=== PATIENT | female | born 1955 | race African-American/Black ===

== ENCOUNTER 2020-02-03 05:35 | Inpatient (IN) ==
[2020-02-03] MEDS ORDERED: FAMOTIDINE 20 MG TABLET PO ONE (06:20)
[2020-02-03] MEDS ORDERED: DIAZEPAM 5 MG TABLET PO ONE (06:20)
[2020-02-03] MEDS ORDERED: LACTATED RINGERS 1,000 ML IV SCH (06:30)
[2020-02-03] MEDS ORDERED: VANCOMYCIN INJ 1,000 MG in SODIUM CHLORIDE 0.9% 250 ML IV ONE (06:30)
[2020-02-03] MEDS ORDERED: CLINDAMYCIN INJ 900 MG in PREMIX 1 EACH IV ONE (06:30)
[2020-02-03] MEDS ORDERED: VANCOMYCIN 1,000 MG VIAL ONE (06:32)
[2020-02-03] MEDS ORDERED: FAMOTIDINE 20 MG TABLET ONE (06:33)
[2020-02-03] MEDS ORDERED: CLINDAMYCIN INJ 50 ML IV ONE (06:33)
[2020-02-03] MEDS ORDERED: DIAZEPAM 5 MG TABLET ONE (06:33)
[2020-02-03] MEDS ORDERED: BACITRACIN OINT 0.9 GM PACK TOP ONE (08:15)
[2020-02-03] MEDS ORDERED: GLUCAGON 1 MG VIAL IM PRN (09:01)
[2020-02-03] MEDS ORDERED: DEXTROSE 10% 250 ML BAG IV PRN (09:01)
[2020-02-03] MEDS ORDERED: MAGNESIUM HYDROXIDE SUSP 30 ML UDCUP PO PRN (09:02)
[2020-02-03] MEDS ORDERED: diphenhydrAMINE CAP 25 MG CAPSULE PO PRN (09:02)
[2020-02-03] MEDS ORDERED: ONDANSETRON 4 MG/2 ML VIAL IV PRN ×2 (09:02→09:32)
[2020-02-03] MEDS ORDERED: MORPHINE 4 MG/1 ML VIAL IV PRN ×2 (09:02)
[2020-02-03] MEDS ORDERED: ZALEPLON 5 MG CAPSULE PO PRN (09:02)
[2020-02-03] MEDS ORDERED: propofoL 200 MG/20 ML VIAL IV ONE (09:20)
[2020-02-03] MEDS ORDERED: ROPIVACAINE 0.5% 30 ML VIAL ONE (09:20)
[2020-02-03] MEDS ORDERED: LIDOCAINE 2% 5 ML VIAL ONE (09:20)
[2020-02-03] MEDS ORDERED: ACETAMINOPHEN 1,000 MG/100 ML VIAL IV ONE (09:21)
[2020-02-03] MEDS ORDERED: MIDAZOLAM 2 MG/2 ML VIAL ONE (09:21)
[2020-02-03] MEDS ORDERED: TRANEXAMIC ACID 1,000 MG/10 ML VIAL ONE (09:21)
[2020-02-03] MEDS ORDERED: fentaNYL 100 MCG/2 ML VIAL ONE (09:21)
[2020-02-03] MEDS ORDERED: LACTATED RINGERS 1,000 ML IV ONE (09:21)
[2020-02-03] MEDS ORDERED: PHENYLEPHRINE 1 MG/10 ML SYRINGE IV ONE (09:21)
[2020-02-03] MEDS ORDERED: DEXAMETHASONE 4 MG/1 ML VIAL ONE (09:21)
[2020-02-03] MEDS ORDERED: LABETALOL 100 MG/20 ML VIAL IV ONE (09:33)
[2020-02-03] MEDS: HYDROmorphone 2 MG/1 ML VIAL IV PRN ×4 (09:35→13:45)
[2020-02-03] MEDS ORDERED: SEVOFLURANE 1 UNIT/15 MINUTE INH ONE (12:16)
[2020-02-03] MEDS: KETOROLAC 30 MG/1 ML VIAL IV SCH ×3 (15:53→21:50)
[2020-02-03] MEDS: INSULIN LISPRO 100 UNIT/ML SUBCUT SCH ×3 (15:54→21:53)
[2020-02-03] MEDS: MONTELUKAST 10 MG TABLET PO SCH (16:36)
[2020-02-03] MEDS: ESCITALOPRAM 10 MG TABLET PO SCH (16:36)
[2020-02-03] MEDS: CLINDAMYCIN INJ 900 MG in PREMIX 1 EACH IV SCH (16:37)
[2020-02-03] MEDS: POTASSIUM CHLORIDE INJ 20 MEQ in LACTATED RINGERS 1,000 ML IV SCH (16:37)
[2020-02-03] MEDS: DOCUSATE SODIUM 100 MG CAPSULE PO SCH (21:53)
[2020-02-04] MEDS: POTASSIUM CHLORIDE INJ 20 MEQ in LACTATED RINGERS 1,000 ML IV SCH (03:18)
[2020-02-04] MEDS: KETOROLAC 30 MG/1 ML VIAL IV SCH (03:18)
[2020-02-04] MEDS: CLINDAMYCIN INJ 900 MG in PREMIX 1 EACH IV SCH (03:18)
[2020-02-04] MEDS: FONDAPARINUX 2.5 MG/0.5 ML SYRINGE SUBCUT SCH (05:24)
[2020-02-04 05:47] LABS: Basophils % 0.3 % (0.0-0.8); Eosinophils % 0.2 % (0.00-10.9); Hematocrit 35.5 VOL% (35.7-47.0); Hemoglobin 11.1 GM/DL (12.0-16.0); Immature Granulocytes % 0.5 %; Immature Granulocytes Absolute 0.05 #; Lymphocytes # 2.8 10*3/uL (1.4-4.0); Lymphocytes % 25.4 % (21.3-54.2); Mean Corpuscular HGB Conc 31.3 GM/DL (32-36); Mean Corpuscular Volume 93.7 FL (87-102); Mean Platelet Volume 10.3 FL (9.6-12.0); Monocytes % 8.3 % (1.7-12.7); Neutrophils % 65.3 % (38.7-73.9); Platelet Count 310 T/CUMM (130-400); Red Blood Count 3.79 MC/CUMM (3.8-5.5); Red Cell Distribution Width 13.8 % (9.3-17.3); White Blood Count 10.9 T/CUMM (4-12)
[2020-02-04 05:53] LABS: Calcium 8.2 MG/DL (8.5-10.1); Osmolality,Calculated 276.8 MOS/KG (273-304)
[2020-02-04] MEDS: INSULIN LISPRO 100 UNIT/ML SUBCUT SCH ×4 (07:28→21:23)
[2020-02-04] MEDS: DOCUSATE SODIUM 100 MG CAPSULE PO SCH ×2 (08:44→21:21)
[2020-02-04] MEDS: metFORMIN 500 MG TABLET PO SCH (08:44)
[2020-02-04] MEDS: OLMESARTAN 20 MG TABLET PO SCH (08:44)
[2020-02-04] MEDS: hydroCHLOROthiazide 12.5 MG CAPSULE PO SCH (08:44)
[2020-02-04] MEDS: ESCITALOPRAM 10 MG TABLET PO SCH (08:44)
[2020-02-04] MEDS: POTASSIUM CHLORIDE 10 MEQ TABLET PO SCH (08:44)
[2020-02-04] MEDS: MONTELUKAST 10 MG TABLET PO SCH (08:44)
[2020-02-04] MEDS: CELECOXIB 200 MG CAPSULE PO SCH (15:07)
[2020-02-05] MEDS: FONDAPARINUX 2.5 MG/0.5 ML SYRINGE SUBCUT SCH (06:11)
[2020-02-05 06:29] LABS: Basophils % 0.4 % (0.0-0.8); Eosinophils # 0.2 10*3/uL (0.0-0.87); Eosinophils % 1.6 % (0.00-10.9); Hematocrit 33.5 VOL% (35.7-47.0); Hemoglobin 10.8 GM/DL (12.0-16.0); Immature Granulocytes % 0.5 %; Immature Granulocytes Absolute 0.05 #; Lymphocytes # 3.9 10*3/uL (1.4-4.0); Lymphocytes % 37.9 % (21.3-54.2); Mean Corpuscular HGB Conc 32.2 GM/DL (32-36); Mean Corpuscular Volume 91.5 FL (87-102); Mean Platelet Volume 10.6 FL (9.6-12.0); Monocytes % 6.4 % (1.7-12.7); Neutrophils % 53.2 % (38.7-73.9); Platelet Count 267 T/CUMM (130-400); Red Blood Count 3.66 MC/CUMM (3.8-5.5); Red Cell Distribution Width 13.9 % (9.3-17.3); White Blood Count 10.2 T/CUMM (4-12)
[2020-02-05] MEDS: INSULIN LISPRO 100 UNIT/ML SUBCUT SCH ×2 (07:28→12:08)
[2020-02-05] MEDS: CELECOXIB 200 MG CAPSULE PO SCH (08:40)
[2020-02-05] MEDS: metFORMIN 500 MG TABLET PO SCH (08:40)
[2020-02-05] MEDS: ESCITALOPRAM 10 MG TABLET PO SCH (08:40)
[2020-02-05] MEDS: POTASSIUM CHLORIDE 10 MEQ TABLET PO SCH (08:40)
[2020-02-05] MEDS: MONTELUKAST 10 MG TABLET PO SCH (08:41)
[2020-02-05] MEDS: DOCUSATE SODIUM 100 MG CAPSULE PO SCH (08:41)
[2020-02-05] MEDS: hydroCHLOROthiazide 12.5 MG CAPSULE PO SCH (08:41)
[2020-02-05] MEDS: OLMESARTAN 20 MG TABLET PO SCH (08:41)
[2020-02-05] MEDS ORDERED: NON-FORMULARY MEDICATION (Semaglutide [Ozempic] 1 MG) SUBCUT SCH (09:00)
[2020-02-05 11:45] VITALS: BP 115/58
== END 2020-02-05 14:30 | disposition home health service (06) | DRG 470 ==
LOC: N.OR 05:35 → N.SDSINP 05:36 → N.3E 14:25
PROVIDERS: ADMIT Orthopaedic Surgery; ATTEND Orthopaedic Surgery